=== PATIENT | female | born 1930 | race Caucasian/White ===

== ENCOUNTER 2018-11-16 13:22 | Emergency (ER) | payer MEDICARE, BC ==
[2018-11-16 13:34] VITALS: RESP 18
--- NOTE | 2018-11-16 14:05 | US ---
EXAMINATION TYPE: US venous doppler duplex LE RT DATE OF EXAM: 11/16/2018 1:01 PM COMPARISON: NONE CLINICAL HISTORY: R60.0 Localized edema. Right leg swelling, pt poor historian SIDE PERFORMED: Right TECHNIQUE: The lower extremity deep venous system is examined utilizing real time linear array sonog laurie with graded compression, doppler sonography and color-flow sonography. VESSELS IMAGED: External Iliac Vein (EIV) Common Femoral Vein Deep Femoral Vein Greater Saphenous Vein * Femoral Vein Popliteal Vein Small Saphenous Vein * Proximal Calf Veins (* superficial vessels) Right Leg: Positive for DVT, right CFV to proximal calf veins Results called to Judy at physicians office at time of exam IMPRESSION: 1. Right lower extremity deep venous thrombosis present within the mid and distal femoral veins this extends popliteal vein proximal calf veins.
[2018-11-16] MEDS ORDERED: APIXABAN 5 MG TAB PO STA (15:23)
[2018-11-16 15:33] LABS: Appearance,Urine Turbid (Clear); Bilirubin,Urine Negative (Negative); Blood,Urine Small (Negative); Color,Urine Yellow; Glucose,Urine (UA) Negative (Negative); Ketones,Urine Negative (Negative); Leukocyte Esterase,Urine Large (Negative); Mucus,Urine Rare /hpf; Nitrite,Urine Positive (Negative); PH, Urine 5.5 (5.0-8.0); Protein,Urine 1+ (Negative); RBC,Urine 8 /hpf (0-5); Specific Gravity,Urine 1.015 (1.001-1.035); Urobilinogen,Urine <2.0 mg/dL (<2.0)
--- NOTE | 2018-11-16 15:38 | ED ---
Extremity Problem HPI - General Chief complaint: Extremity Problem,Nontraumatic Stated complaint: Blood clot in leg, sent from [place] Source: patient Mode of arrival: wheelchair Limitations: no limitations - History of Present Illness Initial comments: 88-year-old female past medical history of Alzheimer's, previous stent placement in 2009 presenting today for follow-up for positive ultrasound + for deep venous thrombosis. Patient is unable to verbalize complete sentences. Family states that this is baseline. They state the patient can verbalize pain. They state around [place] began noticing swelling of the legs bilaterally, it was thought patient had congestive heart failure patient was started on Lasix. However patient began complaining of pain in the right lower extremity. The swelling never seemed to resolve. He present to the primary care provider were ultrasound was ordered. Obtained Today Revealing a Mid and Distal Deep Venous Thrombosis. Family denies any color changes, cyanosis or coolness to palpation of the extremity. Family states that they have not noticed any signs of shortness of breath, the patient is ambulatory with the house using a 4 wheel walker. Family denies any recent falls, history of hemorrhagic cerebrovascular accident, recent surgeries, melena or hematochezia, history of prosthetic valve or liver/renal disease. They state patient is overall well without frequent hospitalization. Upon review of systems they do admit to foul-smelling urine concerning for urinary tract infection. Denies fever, altered mental status. Remainder of ROS obtained from family (-). Pt appears well nontoxic. Recent laboratory studies from 10/26 and 10/18 which included urine cultures. Upon arrival HR and oxygen saturation within normal limits. - Related Data Home Medications Medication Instructions Recorded Confirmed Aspirin 81 mg PO DAILY 10/26/15 03/04/17 Lisinopril [Zestril] 10 mg PO DAILY 10/26/15 03/04/17 Metoprolol Tartrate 25 mg PO BID 10/26/15 03/04/17 Aricept 23mg 23 mg PO DAILY 08/21/16 03/04/17 Celecoxib [CeleBREX] 200 mg PO BID 03/04/17 03/04/17 Simvastatin 40 tab PO HS 03/04/17 03/04/17 amLODIPine BESYLATE [Amlodipine 5 mg PO DAILY 03/04/17 03/04/17 Besylate] Previous Rx's Medication Instructions Recorded PARoxetine HCL [Paxil] 10 mg PO DAILY #30 tab 08/22/16 Apixaban [Eliquis] 5 mg PO BID #74 tab 11/16/18 Cephalexin [Keflex] 500 mg PO Q6HR 7 Days #28 cap 11/16/18 Allergies Allergy/AdvReac Type Severity Reaction Status Date / Time nitrofurantoin Allergy Unknown Verified 11/16/18 13:34 [From Macrobid] Review of Systems ROS Statement: Those systems with pertinent positive or pertinent negative responses have been documented in the HPI. ROS Other: All systems not noted in ROS Statement are negative. Past Medical History Past Medical History: Dementia Additional Past Medical History / Comment(s): SHINGLES in past but still has some nerve pain in trunk, past elevated liver function tests due to tylenol but LFTs normalized, varicose veins bilaterally, DJD, UTIs. History of Any Multi-Drug Resistant Organisms: None Reported Past Surgical History: Heart Catheterization With Stent Additional Past Surgical History / Comment(s): colonoscopy Past Anesthesia/Blood Transfusion Reactions: No Reported Reaction Date of Last Stent Placement:: 2009 Past Psychological History: No Psychological Hx Reported Smoking Status: Former smoker Past Alcohol Use History: None Reported Past Drug Use History: None Reported - Past Family History Father Additional Family Medical History / Comment(s): Father had some kind of heart problem. General Exam - General Exam Comments Initial Comments: General: The patient is awake and alert, in no distress, and does not appear acutely ill. Eye: +3 mm pupils are equal, round and reactive to light, extra-ocular movements are intact. No nystagmus. There is normal conjunctiva bilaterally. No signs of icterus. Ears, nose, mouth and throat: There are moist mucous membranes and no oral lesions. Neck: The neck is supple, there is no tenderness or JVD. Cardiovascular: There is a regular rate and rhythm. No murmur, rub or gallop is appreciated. Respiratory: Lungs are clear to auscultation, respirations are non-labored, breath sounds are equal. No wheezes, stridor, rales, or rhonchi. Gastrointestinal: Soft, non-distended, non-tender abdomen without masses or organomegaly noted. There is no rebound or guarding present. Bowel sounds are unremarkable. Musculoskeletal: Normal ROM, no tenderness. Strength 5/5. Sensation intact. Radial and DP pulses equal bilaterally 2+. Neurological: A&O x 3. CN II-XII intact, There are no obvious motor or sensory deficits. Coordination appears grossly intact. Speech is normal. Skin: Skin is warm and dry and no rashes or lesions are noted. No evidence of bruising and physical examination. Right lower extremity edema noted. No pallor, coolness to palpation of the extremities, there are equal in color and temperature. Psychiatric: Cooperative, pleasant, can follow commands. Smiling. Mumbles words. Limitations: no limitations Course Vital Signs 11/16/18 11/16/18 13:31 15:45 Temperature 99.0 F 98.1 F Pulse Rate 82 73 Respiratory 18 18 Rate Blood Pressure 125/75 117/70 O2 Sat by Pulse 99 97 Oximetry Medical Decision Making - Medical Decision Making 88 year old female with a positive deep venous duplex ultrasound of the mid and distal femur. There is no clinical signs concerning for vascular compromise or cerulea dolens. Heart rate within normal limits, 99% on room air no vital signs findings or physical examination findings of respiratory distress concerning for pulmonary embolism. Laboratory studies obtained 10/26/2018 reviewed, revealing no evidence of bleeding diathesis or renal failure. Patient does not have any absolute contraindications to use of eliquis. Family denies any recurrent falls, family denies any recent hospitalizations. Patient family denies any recent antibiotic use. Pt appears well. ROS (+) for odorous urine. Urine analysis obtained revealing positive nitrates concerning for urinary tract infection. Patient be started on Keflex 500 mg 4 times a day 7 days. Patient does not appear toxic or septic. No changes in mental status, patient afebrile. I did call patient's family practitioner speaking with PALLIATIVE C[employer] NURSE PRACTITIONER Judy. She states she is comfortable with outpatient therapy if indicated, and will schedule follow-up with patient for deep venous thrombosis as well as repeat urinalysis for urinary tract infection. At this time I do feel patient is stable for discharge with eliquis 10mg BID x 7 days then 5mg BID for the remaining 3 months. Pt given 1 month supply to get remaining prescription from family practitioner. Family is agreeable and appeared happy with discharge. I discussed the case with Dr. Adams who agrees impression and plan. Questions were answered to the best my ability. Return parameters were discussed at length with family including return for any falls, I discussed at length the risk for bleeding as well as signs and symptoms concerning for GI bleed. Pt family verbalized understanding. Pt discharged after she was administered an additional dose. Patient appears well. Vital signs within acceptable limits. - Lab Data Lab Results 11/16/18 Range/Units 15:05 Urine Color Yellow Urine Appearance Turbid H (Clear) Urine pH 5.5 (5.0-8.0) Ur Specific [place] 1.015 (1.001-1.035) Urine Protein 1+ H (Negative) Urine Glucose (UA) Negative (Negative) Urine Ketones Negative (Negative) Urine Blood Small H (Negative) Urine Nitrite Positive H (Negative) Urine Bilirubin Negative (Negative) Urine Urobilinogen <2.0 (<2.0) mg/dL Ur Leukocyte Esterase Large H (Negative) Urine RBC 8 H (0-5) /hpf Urine WBC >182 H (0-5) /hpf Urine WBC Clumps Many H (None) /hpf Urine Mucus Rare H (None) /hpf Disposition Clinical Impression: Deep venous thrombosis, UTI (urinary tract infection) Disposition: HOME SELF-CARE Condition: Good Instructions: Apixaban (By mouth), Deep Vein Thrombosis (ED), Deep Vein Thrombosis Prevention (ED) Additional Instructions: Please use medication as discussed. Please follow-up with family doctor in the next week for bladder infection/DVT follow up. Please seek follow-up for medication refill in 1 month, total length of initial treatment is 3 months total-given 1 month RX today. Please see Please return to emergency room if the symptoms increase or worsen or for any other concerns, including noticing patient short of breath. Prescriptions: Apixaban [Eliquis] 5 mg PO BID #74 tab Cephalexin [Keflex] 500 mg PO Q6HR 7 Days #28 cap Is patient prescribed a controlled substance at d/c from ED?: No Referrals: Jannet Pillai DO [Primary Care Provider] - 1-2 days Time of Disposition: 15:41
[2018-11-16 15:51] VITALS: BP 117/70; PULSE 73; TEMP 98.1
== END 2018-11-16 15:45 | disposition home or self-care (01) ==
LOC: EC 13:22
DX: I82.401 Acute embolism and thrombosis of unspecified deep veins of right lower extremity (principal); N39.0 Urinary tract infection, site not specified; G30.9 Alzheimer's disease, unspecified; F02.80 Dementia in other diseases classified elsewhere, unspecified severity, without behavioral disturbance, psychotic disturbance, mood disturbance, and anxiety; Z87.891 Personal history of nicotine dependence; Z95.5 Presence of coronary angioplasty implant and graft; Z98.890 Other specified postprocedural states; Z86.79 Personal history of other diseases of the circulatory system; Z79.1 Long term (current) use of non-steroidal anti-inflammatories (NSAID); Z79.82 Long term (current) use of aspirin; Z79.899 Other long term (current) drug therapy; Z88.1 Allergy status to other antibiotic agents
CPT/HCPCS: 81001; 87077; 87086; 87186; 99284